=== PATIENT | male | born 1985 | race Caucasian/White ===

== ENCOUNTER 2021-07-09 11:21 | Emergency (ER) | payer MEDICAID ==
[~2021-07-09] VITALS: Ht 172.7 cm; Wt 110.3 kg
[2021-07-09 11:25] VITALS: BP 143/85
[2021-07-09] MEDS ORDERED: LIDOCAINE MPF 1% 10 MG/ML VIAL INJ ONE (11:35)
[2021-07-09] MEDS ORDERED: BACITRACIN OINT 500 UNITS/GM PKT TP ONE (11:35)
--- NOTE | 2021-07-09 11:43 | NUR ---
WOUND IRIGATED WITH NORMAL SALINE AND DIRECT PRESSURE APPLIED TO WOUND. SUTURE SETUP BEDSIDE AT 1140
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
--- NOTE | 2021-07-09 12:00 | NUR ---
Patient has a 5 cm laceration to LT HAND. JULIET THORNTON applied sutures using sterile technique. Edges well approximated. Site cleansed with IODINE. Bleeding controlled. Pt tolerated well.
[2021-07-09] MEDS ORDERED: IBUP-2213 PO (12:24)
[2021-07-09 12:42] VITALS: BP 143/85
== END 2021-07-09 12:42 | disposition home or self-care (01) ==
LOC: MED 11:21
DX: S61.412A Laceration without foreign body of left hand, initial encounter (principal); Z79.899 Other long term (current) drug therapy; W26.0XXA Contact with knife, initial encounter; Y93.89 Activity, other specified; Y92.89 Other specified places as the place of occurrence of the external cause; Y99.8 Other external cause status
CPT/HCPCS: 12001; 90471; 90715; 99283; J2001

== ENCOUNTER 2021-07-11 14:44 | Emergency (ER) | payer MEDICAID ==
[~2021-07-11] VITALS: Ht 172.7 cm; Wt 109.8 kg
[~2021-07-11 14:44] MED LIST: IBUP-2213 PO
[2021-07-11 15:12] VITALS: BP 117/47
[2021-07-11 15:17] VITALS: BP 117/47
--- NOTE | 2021-07-11 15:17 | NUR ---
PT SEEN BY PA IN TRIAGE.
--- NOTE | 2021-07-11 15:17 | NUR ---
NO NURSING INTERVENTIONS, NO COMPLETE ASSESSMENTS.
--- NOTE | 2021-07-11 15:18 | NUR ---
Patient discharged with v/s stable. Written and verbal after care instructions given and explained. Patient verbalized understanding. Ambulatory with steady gait. All questions addressed prior to discharge. Advised to follow up with PMD.
== END 2021-07-11 15:18 | disposition home or self-care (01) ==
LOC: MED 14:44
DX: S61.412D Laceration without foreign body of left hand, subsequent encounter (principal); Z48.00 Encounter for change or removal of nonsurgical wound dressing; X58.XXXD Exposure to other specified factors, subsequent encounter
CPT/HCPCS: 99282

== ENCOUNTER 2021-07-16 12:08 | Emergency (ER) | payer MEDICAID, OTHER ==
[~2021-07-16] VITALS: Ht 172.7 cm; Wt 109.8 kg
[2021-07-16 12:19] VITALS: BP 117/62
[2021-07-16] MEDS ORDERED: BACI1PAC6 TP (12:24)
[2021-07-16] MEDS ORDERED: BACITRACIN OINT 500 UNITS/GM PKT TP ONE (12:25)
[2021-07-16 12:44] VITALS: BP 117/62
--- NOTE | 2021-07-16 12:44 | NUR ---
NO NURSING INTERVENTIONS GIVEN
== END 2021-07-16 12:44 | disposition home or self-care (01) ==
LOC: MED 12:08
DX: S61.412D Laceration without foreign body of left hand, subsequent encounter (principal); Z79.899 Other long term (current) drug therapy; X58.XXXD Exposure to other specified factors, subsequent encounter
CPT/HCPCS: 99282

== ENCOUNTER 2021-08-16 17:36 | Emergency (ER) | payer OTHER ==
[~2021-08-16] VITALS: Ht 172.7 cm; Wt 108.9 kg
[~2021-08-16 17:36] MED LIST changes: +BACI1PAC6 TP
[2021-08-16 17:53] VITALS: BP 147/79
[2021-08-16] MEDS ORDERED: IBUP-2213 PO (21:57)
== END 2021-08-16 22:36 | disposition home or self-care (01) ==
LOC: MED 17:36
DX: S93.402A Sprain of unspecified ligament of left ankle, initial encounter (principal); Z79.1 Long term (current) use of non-steroidal anti-inflammatories (NSAID); Z79.899 Other long term (current) drug therapy; X58.XXXA Exposure to other specified factors, initial encounter; Y92.89 Other specified places as the place of occurrence of the external cause; Y93.89 Activity, other specified; Y99.8 Other external cause status
CPT/HCPCS: 73610; 73630; 99284

== ENCOUNTER 2022-07-09 20:57 | Emergency (ER) | payer OTHER ==
[~2022-07-09] VITALS: Ht 175.3 cm; Wt 108.9 kg
[2022-07-09 21:23] VITALS: BP 124/68
--- NOTE | 2022-07-09 21:27 | NUR ---
SWABS COLLECTED, PT SENT TO [facility].
--- NOTE | 2022-07-09 21:33 | NUR ---
SWABS TAKEN TO LAB
--- NOTE | 2022-07-09 23:30 | NUR ---
PT TO BED 11
[2022-07-10] MEDS ORDERED: PRED20TA5 PO (00:06)
[2022-07-10] MEDS ORDERED: AMOX1TAB8 PO (00:06)
[2022-07-10 00:28] VITALS: BP 121/64
--- NOTE | 2022-07-10 00:28 | NUR ---
Patient discharged with v/s stable. Written and verbal after care instructions given and explained. Patient alert, oriented and verbalized understanding of instructions. Ambulatory with steady gait. All questions addressed prior to discharge. ID band removed. Patient advised to follow up with PMD. Rx of AMOX-CLAV AND PREDNISONE given. Patient educated on indication of medication including possible reaction and side effects. Opportunity to ask questions provided and answered.
== END 2022-07-10 00:28 | disposition home or self-care (01) ==
LOC: MED 20:57
DX: J02.9 Acute pharyngitis, unspecified (principal); Z20.822 Contact with and (suspected) exposure to COVID-19
CPT/HCPCS: 99283

== ENCOUNTER 2023-07-09 05:20 | Emergency (ER) | payer OTHER ==
[~2023-07-09] VITALS: Ht 180.3 cm; Wt 108.9 kg
[~2023-07-09 05:20] MED LIST changes: +AMOX1TAB8 PO; +BACI-418 TP; -BACI1PAC6 TP; +PRED20TA5 PO
[2023-07-09 05:37] VITALS: BP 129/89; PULSE 70; RESP 16; TEMP 97.6; O2SAT 100
[2023-07-09 05:40] VITALS: O2SAT 100
[2023-07-09] MEDS ORDERED: AZIT250T4 PO (05:46)
[2023-07-09] MEDS ORDERED: NAPR-54 PO (05:46)
== END 2023-07-09 06:00 | disposition home or self-care (01) ==
LOC: MED 05:20
DX: J02.9 Acute pharyngitis, unspecified (principal); Z79.899 Other long term (current) drug therapy; Z79.2 Long term (current) use of antibiotics; Z79.1 Long term (current) use of non-steroidal anti-inflammatories (NSAID)
CPT/HCPCS: 99283

== ENCOUNTER 2023-08-07 20:58 | Emergency (ER) | payer OTHER ==
[~2023-08-07] VITALS: Ht 175.3 cm; Wt 108.9 kg
[~2023-08-07 20:58] MED LIST changes: +AZIT250T4 PO; +NAPR-54 PO
[2023-08-07 21:30] VITALS: BP 138/78; PULSE 57; RESP 16; TEMP 97.9; O2SAT 99
[2023-08-07 21:40] VITALS: TEMP 97.9
[2023-08-07 21:54] LABS: BASOPHILS # (AUTO) 0.1 K/uL (0.00-0.22); BASOPHILS % (AUTO) 0.8 % (0.0-2.0); EOSINOPHILS # (AUTO) 0.5 K/uL (0-0.4); EOSINOPHILS % (AUTO) 4.2 % (0.0-4.0); HEMATOCRIT 45.2 % (36-52); HEMOGLOBIN 15.5 g/dL (12.0-18.0); LYMPHOCYTES # (AUTO) 5.2 K/uL (2.0-11.5); LYMPHOCYTES % (AUTO) 42.5 % (20.5-51.1); MEAN CORPUSCULAR HEMOGLOBIN 30 pg (27-31); MEAN CORPUSCULAR HGB CONC 34 g/dL (33-37); MEAN CORPUSCULAR VOLUME 86.7 fL (80-94); MONOCYTES % (AUTO) 8.3 % (1.7-9.3); NEUTROPHILS # (AUTO) 5.4 K/uL (1.8-7.7); NEUTROPHILS % (AUTO) 44.2 % (42.2-75.2); PLATELET COUNT (AUTO) 261 K/uL (140-450); RED BLOOD CELL COUNT(AUTO) 5.21 MIL/uL (4.20-6.10); RED CELL DISTRIBUTION WIDTH 12.8 % (11.6-13.7); WHITE BLOOD COUNT (AUTO) 12.2 K/uL (4.8-10.8)
[2023-08-07 22:11] LABS: ALBUMIN 3.8 g/dL (3.4-5.0); CALCIUM 9.2 mg/dL (8.5-10.1); CARBON DIOXIDE 29.1 mmol/L (21-32); CREATININE 1.1 mg/dL (0.6-1.3); POTASSIUM 4.1 mmol/L (3.5-5.1); TOTAL BILIRUBIN 0.3 mg/dL (0.0-1.0); TOTAL PROTEIN, SERUM 7.9 g/dL (6.4-8.2)
[2023-08-07] MEDS ORDERED: KETOROLAC 60 MG/2 ML VIAL IM ONE (22:40)
[2023-08-07 23:20] VITALS: BP 135/62; PULSE 60; RESP 18; O2SAT 96
== END 2023-08-07 23:20 | disposition home or self-care (01) ==
LOC: MED 20:58
DX: R10.11 Right upper quadrant pain (principal); Z79.899 Other long term (current) drug therapy
CPT/HCPCS: 36415; 80053; 83690; 85025; 96372; 99283; J1885

== ENCOUNTER 2023-08-13 18:02 | Emergency (ER) | payer OTHER ==
[~2023-08-13] VITALS: Ht 177.8 cm; Wt 108.9 kg
[2023-08-13 18:12] VITALS: BP 142/77; PULSE 68; RESP 18; TEMP 97.6; O2SAT 97
[2023-08-13] MEDS ORDERED: NAPR-54 PO (19:03)
== END 2023-08-13 19:31 | disposition home or self-care (01) ==
LOC: MED 18:02
DX: M79.631 Pain in right forearm (principal); Z79.899 Other long term (current) drug therapy; Z79.1 Long term (current) use of non-steroidal anti-inflammatories (NSAID); Z79.2 Long term (current) use of antibiotics
CPT/HCPCS: 99282